=== PATIENT | female | born 2000 | race American Indian/Alaskan Native ===

== ENCOUNTER 2019-05-12 15:18 | Outpatient (CLI) | payer OTHER ==
[2019-05-12 15:37] VITALS: BP 101/58
--- NOTE | 2019-05-12 16:16 | Event Note ---
Date: 05/12/19 pr report loss of fluid x 1 today while sitting at dinner table, denies any ctx or further leaking. Sterile speck done;cervix well visualized - no fluid, pooling or leaking noted. Normal white vaginal discharge noted. Nitrazine negative. SVE closed/thick/-2. CAT 1 tracing. d/c home to f/u with her provider Monday. All questions addressed, pt verbalized understanding.
== END 2019-05-12 16:25 | disposition home or self-care (01) ==
LOC: TRG 15:18
PROVIDERS: ATTEND Obstetrics & Gynecology
DX: O42.913 Preterm premature rupture of membranes, unspecified as to length of time between rupture and onset of labor, third trimester (principal); Z3A.35 35 weeks gestation of pregnancy
CPT/HCPCS: 59025